=== PATIENT | male | born 1955 | race Caucasian/White ===

== ENCOUNTER 2018-11-21 03:48 | Outpatient (CLI) | payer MEDICARE | END 2018-11-21 23:59 | disposition home or self-care (01) | LOC: DIABETIC 03:48 | PROVIDERS: ATTEND Family Medicine | DX: E11.9 Type 2 diabetes mellitus without complications (principal) | CPT/HCPCS: G0108 ==

== ENCOUNTER 2021-09-19 05:57 | Day surgery (SDC) | payer MEDICARE ==
[2021-09-18 11:07] LABS: BASOPHILS % (AUTO) 0.4 % (0-1); EOSINOPHILS # (AUTO) 0.2 X10'3 (0-0.9); EOSINOPHILS % (AUTO) 1.9 % (0-6); HEMATOCRIT 40.8 % (42.0-52.0); HEMOGLOBIN 13.7 g/dl (14.0-17.9); LYMPHOCYTES # (AUTO) 2.5 X10'3 (1.1-4.8); LYMPHOCYTES % (AUTO) 25.3 % (21-51); MEAN CORPUSCULAR HEMOGLOBIN 29.1 PG (27.0-31.0); MEAN CORPUSCULAR HGB CONC 33.6 g/dL (33.0-36.5); MEAN CORPUSCULAR VOLUME 86.7 FL (78-98); MEAN PLATELET VOLUME 7.9 FL (7.4-10.4); MONOCYTES # (AUTO) 0.6 X10'3 (0-0.9); MONOCYTES % (AUTO) 6.5 % (2-12); NEUTROPHILS # (AUTO) 6.5 X10'3 (1.8-7.7); NEUTROPHILS % (AUTO) 65.9 % (42-75); PLATELET COUNT 221 X10'3 (140-440); RED CELL DISTRIBUTION WIDTH 14.3 % (11.5-14.5); WHITE BLOOD COUNT 9.9 X10'3 (4.5-11.0)
[2021-09-18 11:08] LABS: ALBUMIN 3.5 G/DL (3.4-5.0); ANION GAP 7 (8-16); BLOOD UREA NITROGEN 20 MG/DL (7-18); BUN/CREATININE RATIO 16.9 (5.4-32.0); CALCIUM 8.8 MG/DL (8.5-10.1); CHLORIDE 104 MMOL/L (99-107); CREATININE 1.18 MG/DL (0.60-1.10); GLUCOSE 131 MG/DL (70-104); POTASSIUM 4.3 MMOL/L (3.5-5.1); SODIUM 139 MMOL/L (135-145); TOTAL CARBON DIOXIDE 28.5 MMOL/L (24-32); eGFR 62 ML/MIN
[2021-09-18 11:10] LABS: PARTIAL THROMBOPLASTIN TIME 28 SECONDS (22-32)
[~2021-09-19] VITALS: Ht 175.3 cm; Wt 106.1 kg
[2021-09-19] VITALS (11 sets, daily range): BP systolic 111–139; BP diastolic 55–69
[2021-09-19] MEDS ORDERED: normal saline 1000ml 1,000 ML IV SCH ×2 (06:25→10:05)
[2021-09-19] MEDS ORDERED: ceFAZolin 2gm in dextrose, iso 50 ML IV ONE (06:25)
[2021-09-19] MEDS ORDERED: ATOR-2 PO (06:33)
[2021-09-19] MEDS ORDERED: LISI40TA13 PO (06:33)
[2021-09-19] MEDS ORDERED: AMLO10TA13 PO (06:33)
[2021-09-19] MEDS ORDERED: CLOP75TA34 PO (06:33)
[2021-09-19] MEDS ORDERED: GLIP5TAB13 PO (06:33)
[2021-09-19] MEDS ORDERED: FURO20TA4 PO (06:33)
[2021-09-19] MEDS ORDERED: CITA20TA28 PO (06:34)
[2021-09-19] MEDS ORDERED: ASPI-611 PO (06:37)
[2021-09-19] MEDS ORDERED: LIDOcaine 1% w/EPI 1:100,000 30ml vial (MDV) ONE (07:21)
[2021-09-19] MEDS ORDERED: ceFAZolin 1000mg inj ONE (07:21)
[2021-09-19] MEDS ORDERED: midazolam 1 mg/ML 2ml injection ONE (07:21)
[2021-09-19] MEDS ORDERED: fentaNYL/PF 50MCG/1 ML 2ML syringe ONE (07:21)
[2021-09-19] MEDS ORDERED: vancomycin/NS 1 GM ADD-VANTAGE 250 ML X 1 DOSE IV ONE (11:00)
== END 2021-09-19 16:00 | disposition home or self-care (01) ==
LOC: SSTAY O 05:57
PROVIDERS: ATTEND Internal Medicine Cardiovascular Disease
DX: I44.1 Atrioventricular block, second degree (principal); E11.9 Type 2 diabetes mellitus without complications; I10 Essential (primary) hypertension; G43.909 Migraine, unspecified, not intractable, without status migrainosus; Z98.890 Other specified postprocedural states; Z87.891 Personal history of nicotine dependence; Z79.899 Other long term (current) drug therapy; Z79.82 Long term (current) use of aspirin; Z79.01 Long term (current) use of anticoagulants; Z79.84 Long term (current) use of oral hypoglycemic drugs
CPT/HCPCS: 33208; 36415; 71046; 80048; 82948; 85025; 85610; 85730; 93005; 99152; 99153; C1785; C1894; C1898; J0690; J2250; J3010; J3370; J3490; J7030; A4565; A4620; A6258; A6449